=== PATIENT | male | born 1940 | race Caucasian/White ===

== ENCOUNTER 2023-01-24 18:39 | Inpatient (IN) ==
[2023-01-24] MEDS ORDERED: ONDANSETRON 4 MG/2 ML VIAL IV ONE (19:06)
[2023-01-24 19:14] LABS: POC Calcium, Ionized 1.22 (1.16-1.32); POC Creatinine 2.7 (0.6-1.2); POC Potassium 5.4 (3.3-5.1)
[2023-01-24 20:08] LABS: Basophils # (Auto) 0.03 K/mcL (0.00-0.30); Basophils % (Auto) 0.4 % (0.0-2.0); Eosinophils # (Auto) 0.02 K/mcL (0.00-0.70); Eosinophils % (Auto) 0.2 % (0.0-7.0); Hematocrit 50.1 % (40.1-51.0); Hemoglobin 15.8 g/dL (13.7-17.5); Lymphocytes # (Auto) 1.07 K/mcL (1.50-4.80); Lymphocytes % (Auto) 12.7 % (15.5-49.0); Mean Cell Volume 93.5 fL (80.0-100.0); Mean Corpuscular HGB Conc 31.5 g/dL (31.0-36.0); Mean Platelet Volume 10.4 fL (8.8-12.5); Monocytes # (Auto) 0.91 K/mcL (0.10-0.90); Monocytes % (Auto) 10.8 % (1.0-12.0); Neutrophils % (Auto) 75.5 % (38.0-78.0); Platelet Count 220 K/mcL (140-440); RBC 5.36 M/mcL (4.63-6.08); Red Cell Distribution Width 15.4 % (11.5-14.5); WBC 8.4 K/mcL (4.5-11.0)
[2023-01-24 20:29] LABS: ALT/SGPT 46 U/L (<40); AST/SGOT 45 U/L (<40); Albumin 4.2 gm/dL (3.2-5.2); Alkaline Phosphatase 112 U/L (39-117); Bilirubin,Direct 0.2 mg/dL (<0.3); Bilirubin,Total 0.8 mg/dL (0.1-1.0); Globulin 3.8 gm/dL (2.2-3.7)
[2023-01-24] MEDS ORDERED: LACTATED RINGERS 1,000 ML IV ONE (20:40)
[2023-01-24] MEDS ORDERED: PIPERACILLIN SODIUM/TAZOBACTAM 3.375 GM in DEXTROSE 5% IN WATER 50 ML IV ONE (22:07)
[2023-01-24] MEDS ORDERED: METOPROLOL TARTRATE 5 MG/5 ML VIAL IV PRN (23:00)
[2023-01-24] MEDS ORDERED: METOCLOPRAMIDE 10 MG/2 ML VIAL IV PRN (23:00)
[2023-01-24] MEDS ORDERED: KETOROLAC 30 MG/ML VIAL IV PRN (23:00)
[2023-01-24] MEDS ORDERED: ONDANSETRON 4 MG/2 ML VIAL IV PRN (23:00)
[2023-01-24] MEDS ORDERED: DEXTROSE 50% 50 ML VIAL IV PRN (23:00)
[2023-01-24] MEDS ORDERED: hydrALAZINE 20 MG/ML VIAL IV PRN (23:00)
[2023-01-24] MEDS ORDERED: IPRATROPIUM/ALBUTEROL 3 ML AMPUL.NEB NEB PRN (23:00)
[2023-01-24] MEDS ORDERED: morphine 4 MG/ML VIAL IV PRN (23:00)
[2023-01-24] MEDS ORDERED: traZODone HCL 50 MG TABLET PO PRN (23:00)
[2023-01-24] MEDS ORDERED: DEXTROSE 31 GM ORAL.SUSP PO PRN (23:00)
[2023-01-24] MEDS: DEXTROSE 5%-1/2NS 1,000 ML IV SCH (23:16)
[2023-01-25] MEDS: INSULIN LISPRO 1 UNIT/0.01 ML UNIT SQ SCH ×4 (00:46→17:18)
[2023-01-25] MEDS ORDERED: PIPERACILLIN SODIUM/TAZOBACTAM 3.375 GM VIAL IV ONE (01:50)
[2023-01-25] MEDS: PIPERACILLIN SODIUM/TAZOBACTAM 3.375 GM in DEXTROSE 5% IN WATER 100 ML IV SCH ×4 (02:18→22:10)
[2023-01-25] MEDS: 0.9 % SODIUM CHLORIDE 10 ML SYRINGE IV SCH ×3 (04:08→20:07)
[2023-01-25] MEDS: ACETAMINOPHEN 650 MG/65 ML BAG IV PRN (05:54)
[2023-01-25] MEDS ORDERED: ACETAMINOPHEN 1,000 MG/100 ML BAG IV ONE (05:54)
[2023-01-25 06:20] LABS: Basophils # (Auto) 0.02 K/mcL (0.00-0.30); Basophils % (Auto) 0.3 % (0.0-2.0); Eosinophils % (Auto) 1.7 % (0.0-7.0); Hematocrit 43.6 % (40.1-51.0); Hemoglobin 13.4 g/dL (13.7-17.5); Lymphocytes # (Auto) 1.15 K/mcL (1.50-4.80); Lymphocytes % (Auto) 19.2 % (15.5-49.0); Mean Cell Volume 96.2 fL (80.0-100.0); Mean Corpuscular HGB Conc 30.7 g/dL (31.0-36.0); Mean Platelet Volume 10.6 fL (8.8-12.5); Monocytes # (Auto) 0.75 K/mcL (0.10-0.90); Monocytes % (Auto) 12.5 % (1.0-12.0); Neutrophils % (Auto) 66.1 % (38.0-78.0); Platelet Count 180 K/mcL (140-440); RBC 4.53 M/mcL (4.63-6.08); Red Cell Distribution Width 15.5 % (11.5-14.5)
[2023-01-25 06:50] LABS: ALT/SGPT 31 U/L (<40); AST/SGOT 27 U/L (<40); Albumin 3.4 gm/dL (3.2-5.2); Albumin/Globulin Ratio 1.1 (1.0-2.3); Alkaline Phosphatase 85 U/L (39-117); Bilirubin,Total 0.7 mg/dL (0.1-1.0); Blood Urea Nitrogen 40 mg/dL (8-23); Calcium 9.3 mg/dL (8.6-10.4); Carbon Dioxide 25 mmol/L (22-30); Chloride 103 mmol/L (96-108); Globulin 3.1 gm/dL (2.2-3.7); Glomerular Filtration Rate 27; Glucose 147 mg/dL (70-105)
[2023-01-25] MEDS: DOCUSATE SODIUM 100 MG CAPSULE PO SCH ×2 (08:31→20:07)
[2023-01-25] MEDS: DEXTROSE 5%-1/2NS 1,000 ML IV SCH (13:48)
[2023-01-25] MEDS: SENNOSIDES 1 TABLET PO SCH (20:07)
[2023-01-26] MEDS: INSULIN LISPRO 1 UNIT/0.01 ML UNIT SQ SCH ×4 (00:04→17:34)
[2023-01-26] MEDS: DEXTROSE 5%-1/2NS 1,000 ML IV SCH ×2 (04:41→14:32)
[2023-01-26] MEDS: 0.9 % SODIUM CHLORIDE 10 ML SYRINGE IV SCH ×3 (04:41→21:16)
[2023-01-26 06:23] LABS: Basophils # (Auto) 0.02 K/mcL (0.00-0.30); Basophils % (Auto) 0.3 % (0.0-2.0); Eosinophils # (Auto) 0.29 K/mcL (0.00-0.70); Eosinophils % (Auto) 4.4 % (0.0-7.0); Hematocrit 42.7 % (40.1-51.0); Hemoglobin 13.4 g/dL (13.7-17.5); Lymphocytes # (Auto) 1.03 K/mcL (1.50-4.80); Lymphocytes % (Auto) 15.5 % (15.5-49.0); Mean Cell Volume 95.5 fL (80.0-100.0); Mean Corpuscular HGB Conc 31.4 g/dL (31.0-36.0); Mean Platelet Volume 10.3 fL (8.8-12.5); Monocytes # (Auto) 0.66 K/mcL (0.10-0.90); Neutrophils % (Auto) 69.5 % (38.0-78.0); Platelet Count 150 K/mcL (140-440); RBC 4.47 M/mcL (4.63-6.08); Red Cell Distribution Width 14.9 % (11.5-14.5); WBC 6.6 K/mcL (4.5-11.0)
[2023-01-26] MEDS: PIPERACILLIN SODIUM/TAZOBACTAM 3.375 GM in DEXTROSE 5% IN WATER 100 ML IV SCH ×3 (06:28→23:53)
[2023-01-26 06:46] LABS: ALT/SGPT 25 U/L (<40); AST/SGOT 21 U/L (<40); Albumin 2.9 gm/dL (3.2-5.2); Albumin/Globulin Ratio 0.9 (1.0-2.3); Alkaline Phosphatase 70 U/L (39-117); Bilirubin,Total 0.5 mg/dL (0.1-1.0); Blood Urea Nitrogen 37 mg/dL (8-23); Carbon Dioxide 26 mmol/L (22-30); Chloride 101 mmol/L (96-108); Globulin 3.3 gm/dL (2.2-3.7); Glomerular Filtration Rate 28; Glucose 136 mg/dL (70-105)
[2023-01-26] MEDS: PANTOPRAZOLE 40 MG VIAL IV SCH ×2 (08:25→16:56)
[2023-01-26] MEDS: DOCUSATE SODIUM 100 MG CAPSULE PO SCH ×2 (08:26→21:13)
[2023-01-26] MEDS: ACETAMINOPHEN 650 MG/65 ML BAG IV PRN ×2 (08:39→23:54)
[2023-01-26] MEDS ORDERED: ALBUTEROL SULFATE 90 MCG IH PRN (09:44)
[2023-01-26] MEDS ORDERED: ALBUTEROL SULFATE 60 PUFF INHALER INH PRN (09:44)
[2023-01-26] MEDS ORDERED: ALBUTEROL SULFATE 2.5 MG/3 ML NEBULIZER INH PRN (09:44)
[2023-01-26] MEDS: FLUTICASONE/SALMETEROL 250/50 INHALER #14 INH SCH ×2 (10:33→23:34)
[2023-01-26] MEDS ORDERED: METOPROLOL TARTRATE 5 MG/5 ML VIAL IV PRN (13:54)
[2023-01-26] MEDS ORDERED: LABETALOL HCL 20 MG/4 ML VIAL IV PRN (13:54)
[2023-01-26] MEDS ORDERED: hydrALAZINE 20 MG/ML VIAL IV PRN (13:54)
[2023-01-26] MEDS ORDERED: GABAPENTIN 300 MG CAPSULE PO ONE (20:42)
[2023-01-26] MEDS ORDERED: GABAPENTIN 300 MG CAPSULE ONE (21:02)
[2023-01-26] MEDS: SENNOSIDES 1 TABLET PO SCH (21:12)
[2023-01-26] MEDS: TAMSULOSIN 0.4 MG CAPSULE PO SCH (21:13)
[2023-01-26] MEDS: METOPROLOL TARTRATE 50 MG TABLET PO SCH (21:13)
[2023-01-26] MEDS: FAMOTIDINE/PF 20 MG/2 ML VIAL IV SCH (21:14)
[2023-01-26] MEDS: FINASTERIDE 5 MG TABLET PO SCH (21:14)
[2023-01-27] MEDS: INSULIN LISPRO 1 UNIT/0.01 ML UNIT SQ SCH ×4 (00:32→16:58)
[2023-01-27] MEDS: DEXTROSE 5%-1/2NS 1,000 ML IV SCH ×2 (06:08→18:10)
[2023-01-27] MEDS: 0.9 % SODIUM CHLORIDE 10 ML SYRINGE IV SCH ×2 (06:22→13:17)
[2023-01-27] MEDS: PIPERACILLIN SODIUM/TAZOBACTAM 3.375 GM in DEXTROSE 5% IN WATER 100 ML IV SCH ×3 (06:22→21:33)
[2023-01-27 06:56] LABS: ALT/SGPT 22 U/L (<40); AST/SGOT 22 U/L (<40); Albumin 3.3 gm/dL (3.2-5.2); Alkaline Phosphatase 74 U/L (39-117); Bilirubin,Direct 0.2 mg/dL (<0.3); Bilirubin,Total 0.6 mg/dL (0.1-1.0); Blood Urea Nitrogen 32 mg/dL (8-23); Calcium 9.6 mg/dL (8.6-10.4); Carbon Dioxide 26 mmol/L (22-30); Chloride 103 mmol/L (96-108); Globulin 3.4 gm/dL (2.2-3.7); Glomerular Filtration Rate 36; Glucose 114 mg/dL (70-105); Lactate Dehydrogenase 178 U/L (135-225); Phosphorous 3.6 mg/dL (2.5-4.5); Triglycerides 110 mg/dL (<150); Uric Acid 8.3 mg/dL (2.5-8.0)
[2023-01-27] MEDS: PANTOPRAZOLE 40 MG VIAL IV SCH ×2 (09:05→17:26)
[2023-01-27] MEDS: GABAPENTIN 300 MG CAPSULE PO SCH (09:06)
[2023-01-27] MEDS: ATORVASTATIN 40 MG TABLET PO SCH (09:06)
[2023-01-27] MEDS: METOPROLOL TARTRATE 50 MG TABLET PO SCH ×2 (09:06→23:04)
[2023-01-27] MEDS: LEVOTHYROXINE 100 MCG TABLET PO SCH (09:06)
[2023-01-27] MEDS: DOCUSATE SODIUM 100 MG CAPSULE PO SCH ×2 (09:06→20:43)
[2023-01-27] MEDS: FLUTICASONE/SALMETEROL 250/50 INHALER #14 INH SCH ×2 (09:10→23:03)
[2023-01-27] MEDS: TIOTROPIUM BROMIDE 18 MCG INHALANT INH SCH (09:11)
[2023-01-27] MEDS: SENNOSIDES 1 TABLET PO SCH (20:43)
[2023-01-27] MEDS: TAMSULOSIN 0.4 MG CAPSULE PO SCH (20:44)
[2023-01-27] MEDS: FINASTERIDE 5 MG TABLET PO SCH (20:44)
[2023-01-27] MEDS: FAMOTIDINE/PF 20 MG/2 ML VIAL IV SCH (20:45)
[2023-01-28] MEDS: 0.9 % SODIUM CHLORIDE 10 ML SYRINGE IV SCH ×3 (00:51→13:45)
[2023-01-28] MEDS: INSULIN LISPRO 1 UNIT/0.01 ML UNIT SQ SCH ×3 (00:51→11:49)
[2023-01-28] MEDS: PIPERACILLIN SODIUM/TAZOBACTAM 3.375 GM in DEXTROSE 5% IN WATER 100 ML IV SCH ×2 (05:13→13:44)
[2023-01-28] MEDS: PANTOPRAZOLE 40 MG VIAL IV SCH (06:57)
[2023-01-28] MEDS: LEVOTHYROXINE 100 MCG TABLET PO SCH (06:58)
[2023-01-28] MEDS: DEXTROSE 5%-1/2NS 1,000 ML IV SCH (07:00)
[2023-01-28] MEDS: FLUTICASONE/SALMETEROL 250/50 INHALER #14 INH SCH (08:04)
[2023-01-28] MEDS: DOCUSATE SODIUM 100 MG CAPSULE PO SCH (08:05)
[2023-01-28] MEDS: TIOTROPIUM BROMIDE 18 MCG INHALANT INH SCH (08:05)
[2023-01-28] MEDS: METOPROLOL TARTRATE 50 MG TABLET PO SCH (08:05)
[2023-01-28] MEDS: ATORVASTATIN 40 MG TABLET PO SCH (08:10)
[2023-01-28] MEDS: GABAPENTIN 300 MG CAPSULE PO SCH (08:10)
== END 2023-01-28 15:25 | disposition home or self-care (01) | DRG 389 ==
LOC: ED 18:39 → MEDSUR 22:56
PROVIDERS: ADMIT Internal Medicine; ATTEND Internal Medicine

== ENCOUNTER 2023-07-13 16:48 | Inpatient (IN) ==
[2023-07-13] MEDS: ACETAMINOPHEN 1,000 MG/100 ML BAG IV ONE (17:28)
[2023-07-13 17:47] LABS: Basophils # (Auto) 0.03 K/mcL (0.00-0.30); Basophils % (Auto) 0.2 % (0.0-2.0); Eosinophils # (Auto) 0.03 K/mcL (0.00-0.70); Eosinophils % (Auto) 0.2 % (0.0-7.0); Hematocrit 43.4 % (40.1-51.0); Hemoglobin 13.2 g/dL (13.7-17.5); Lymphocytes # (Auto) 0.64 K/mcL (1.50-4.80); Mean Cell Volume 99.8 fL (80.0-100.0); Mean Corpuscular HGB Conc 30.4 g/dL (31.0-36.0); Monocytes # (Auto) 0.94 K/mcL (0.10-0.90); Monocytes % (Auto) 7.3 % (1.0-12.0); Neutrophils % (Auto) 87.1 % (38.0-78.0); Platelet Count 172 K/mcL (140-440); RBC 4.35 M/mcL (4.63-6.08); Red Cell Distribution Width 14.8 % (11.5-14.5); WBC 12.8 K/mcL (4.5-11.0)
[2023-07-13 17:59] LABS: ABG Methemoglobin 0.1 % (0.4-1.5); Total Hemoglobin 14.1 gm/Dl (13.5-16.5); VBG Base Excess -2 (-2-3); VBG Oxygen Saturation 75.4 % (40.0-70.0); VBG PCO2 46.5 mmHg (41.0-51.0); VBG PH 7.33 U (7.32-7.42); VBG Total CO2 25.4 mmol/L (25.0-29.0)
[2023-07-13 18:06] LABS: ALT/SGPT 35 U/L (<40); AST/SGOT 32 U/L (<40); Albumin 3.8 gm/dL (3.2-5.2); Albumin/Globulin Ratio 1.3 (1.0-2.3); Alkaline Phosphatase 89 U/L (39-117); Bilirubin,Total 0.5 mg/dL (0.1-1.0); Blood Urea Nitrogen 36 mg/dL (8-23); Calcium 9.5 mg/dL (8.6-10.4); Carbon Dioxide 26 mmol/L (22-30); Chloride 101 mmol/L (96-108); Globulin 2.9 gm/dL (2.2-3.7); Glomerular Filtration Rate 34; Glucose 132 mg/dL (70-105)
[2023-07-13 18:08] LABS: Prothrombin Time 14.2 sec (11.9-14.5)
[2023-07-13] MEDS: cefTRIAXone 2 GM in DEXTROSE 5% IN WATER 50 ML IV ONE (18:18)
[2023-07-13] MEDS: AZITHROMYCIN 500 MG in DEXTROSE 5% IN WATER 250 ML IV ONE (18:42)
[2023-07-13] MEDS: FUROSEMIDE 20 MG/2 ML VIAL IV ONE (18:42)
[2023-07-13 19:37] LABS: Appearance,Urine Clear (Clear); Bilirubin,Urine Negative (Negative); Color,Urine Yellow; Culture Indicated,Urine No; Glucose,Urine (UA) Negative (Negative); Ketones,Urine Negative (Negative); Leukocyte Esterase,Urine Negative /uL (Negative); Nitrate,Urine Negative (Negative); Protein,Urine Trace mg/dL (Negative); Specific Gravity,Urine 1.015 (1.000-1.035); Urine Blood Trace-intact ery/mcL (Negative); Urine RBC 3 /hpf (0-3); Urine WBC 0 /hpf (0-4); Urobilinogen,Urine Normal
[2023-07-13] MEDS: DOCUSATE SODIUM 100 MG CAPSULE PO SCH (21:00)
[2023-07-13] MEDS ORDERED: ONDANSETRON 4 MG/2 ML VIAL IV PRN (21:02)
[2023-07-13] MEDS ORDERED: POTASSIUM CHLORIDE 20 MEQ TABLET PO PRN ×2 (21:02)
[2023-07-13] MEDS ORDERED: MAGNESIUM SULFATE 2 GM/50 ML BAG IV PRN (21:02)
[2023-07-13] MEDS ORDERED: METOPROLOL TARTRATE 5 MG/5 ML VIAL IV PRN (21:02)
[2023-07-13] MEDS ORDERED: POLYETHYLENE GLYCOL 3350 17 GM PACKET PO PRN (21:02)
[2023-07-13] MEDS ORDERED: POTASSIUM CHLORIDE 40 MEQ in DEXTROSE 5% IN WATER 500 ML IV PRN (21:02)
[2023-07-13] MEDS ORDERED: DEXTROSE 31 GM ORAL.SUSP PO PRN (21:02)
[2023-07-13] MEDS ORDERED: DEXTROSE 50% 50 ML VIAL IV PRN (21:02)
[2023-07-13] MEDS: BUDESONIDE 0.5 MG/2 ML AMPUL.NEB NEB SCH (21:55)
[2023-07-13] MEDS: IPRATROPIUM/ALBUTEROL 3 ML AMPUL.NEB NEB PRN (21:55)
[2023-07-13] MEDS: INSULIN LISPRO 1 UNIT/0.01 ML UNIT SQ SCH (22:00)
[2023-07-14] MEDS: ACETAMINOPHEN 325 MG TABLET PO PRN (00:50)
[2023-07-14] MEDS: SENNOSIDES 1 TABLET PO PRN (05:18)
[2023-07-14 06:51] LABS: Basophils # (Auto) 0.06 K/mcL (0.00-0.30); Basophils % (Auto) 0.4 % (0.0-2.0); Eosinophils # (Auto) 0.02 K/mcL (0.00-0.70); Eosinophils % (Auto) 0.1 % (0.0-7.0); Hematocrit 39.2 % (40.1-51.0); Hemoglobin 11.8 g/dL (13.7-17.5); Lymphocytes % (Auto) 5.7 % (15.5-49.0); Mean Cell Volume 98.2 fL (80.0-100.0); Mean Corpuscular HGB Conc 30.1 g/dL (31.0-36.0); Mean Platelet Volume 10.1 fL (8.8-12.5); Monocytes # (Auto) 1.03 K/mcL (0.10-0.90); Monocytes % (Auto) 6.6 % (1.0-12.0); Neutrophils % (Auto) 86.7 % (38.0-78.0); Platelet Count 151 K/mcL (140-440); RBC 3.99 M/mcL (4.63-6.08); WBC 15.7 K/mcL (4.5-11.0)
[2023-07-14 07:08] LABS: ALT/SGPT 23 U/L (<40); AST/SGOT 29 U/L (<40); Albumin 3.4 gm/dL (3.2-5.2); Albumin/Globulin Ratio 1.1 (1.0-2.3); Alkaline Phosphatase 80 U/L (39-117); Bilirubin,Direct 0.3 mg/dL (<0.3); Bilirubin,Total 0.6 mg/dL (0.1-1.0); Blood Urea Nitrogen 39 mg/dL (8-23); Calcium 9.1 mg/dL (8.6-10.4); Carbon Dioxide 23 mmol/L (22-30); Chloride 103 mmol/L (96-108); Globulin 3.2 gm/dL (2.2-3.7); Glomerular Filtration Rate 36; Glucose 121 mg/dL (70-105); Lactate Dehydrogenase 171 U/L (135-225); Phosphorous 3.3 mg/dL (2.5-4.5); Triglycerides 92 mg/dL (<150); Uric Acid 7.8 mg/dL (2.5-8.0)
[2023-07-14] MEDS: AZITHROMYCIN 500 MG in DEXTROSE 5% IN WATER 250 ML IV SCH (10:15)
[2023-07-14] MEDS: cefTRIAXone 2 GM in DEXTROSE 5% IN WATER 50 ML IV SCH (10:16)
[2023-07-14] MEDS: ALLOPURINOL 100 MG TABLET PO SCH (10:20)
[2023-07-14] MEDS: GABAPENTIN 300 MG CAPSULE PO SCH ×2 (10:20→20:59)
[2023-07-14 10:22] LABS: Anisocytosis 1+ (None Seen); Lymphocytes % 7 % (15-49); Monocytes % (Manual) 6 % (1-12); Platelet Estimate NORMAL (Normal); RBC Morphology ABNORMAL (Normal); Reactive Lymphocytes 1 % (0-2); Segmented Neutrophils % 86 % (38-78)
[2023-07-14] MEDS: LEVOTHYROXINE 125 MCG TABLET PO SCH (10:22)
[2023-07-14] MEDS: ATORVASTATIN 40 MG TABLET PO SCH (10:22)
[2023-07-14] MEDS: METOPROLOL TARTRATE 25 MG TABLET PO SCH (10:23)
[2023-07-14] MEDS: ENOXAPARIN 40 MG/0.4 ML SYRINGE SQ SCH (10:25)
[2023-07-14] MEDS: FUROSEMIDE 40 MG TABLET PO SCH (11:10)
[2023-07-14] MEDS: ASPIRIN 81 MG TAB.CHEW CHEWED SCH (11:11)
[2023-07-14] MEDS: HYDROCODONE/APAP 7.5/325MG TABLET PO PRN (11:55)
[2023-07-14] MEDS: TAMSULOSIN 0.4 MG CAPSULE PO SCH (20:57)
[2023-07-14] MEDS: FAMOTIDINE 20 MG TABLET PO SCH (20:57)
[2023-07-14] MEDS: FINASTERIDE 5 MG TABLET PO SCH (20:58)
[2023-07-15 05:46] LABS: Basophils # (Auto) 0.02 K/mcL (0.00-0.30); Basophils % (Auto) 0.1 % (0.0-2.0); Eosinophils # (Auto) 0.03 K/mcL (0.00-0.70); Eosinophils % (Auto) 0.2 % (0.0-7.0); Hematocrit 36.7 % (40.1-51.0); Hemoglobin 11.4 g/dL (13.7-17.5); Lymphocytes # (Auto) 0.65 K/mcL (1.50-4.80); Lymphocytes % (Auto) 4.6 % (15.5-49.0); Mean Cell Volume 98.9 fL (80.0-100.0); Mean Corpuscular HGB Conc 31.1 g/dL (31.0-36.0); Mean Platelet Volume 10.3 fL (8.8-12.5); Monocytes # (Auto) 1.03 K/mcL (0.10-0.90); Monocytes % (Auto) 7.3 % (1.0-12.0); Neutrophils % (Auto) 87.5 % (38.0-78.0); Platelet Count 145 K/mcL (140-440); RBC 3.71 M/mcL (4.63-6.08); Red Cell Distribution Width 14.5 % (11.5-14.5); WBC 14.1 K/mcL (4.5-11.0)
[2023-07-15] MEDS: FUROSEMIDE 40 MG TABLET PO SCH (09:12)
[2023-07-15] MEDS: ASPIRIN 81 MG TAB.CHEW PO SCH (09:13)
[2023-07-16 06:16] LABS: Basophils # (Auto) 0.02 K/mcL (0.00-0.30); Basophils % (Auto) 0.2 % (0.0-2.0); Eosinophils # (Auto) 0.13 K/mcL (0.00-0.70); Eosinophils % (Auto) 1.3 % (0.0-7.0); Hematocrit 36.1 % (40.1-51.0); Hemoglobin 11.5 g/dL (13.7-17.5); Lymphocytes % (Auto) 6.7 % (15.5-49.0); Mean Cell Volume 96.3 fL (80.0-100.0); Mean Corpuscular HGB Conc 31.9 g/dL (31.0-36.0); Mean Platelet Volume 10.4 fL (8.8-12.5); Monocytes # (Auto) 0.82 K/mcL (0.10-0.90); Monocytes % (Auto) 7.9 % (1.0-12.0); Neutrophils % (Auto) 83.8 % (38.0-78.0); Platelet Count 159 K/mcL (140-440); RBC 3.75 M/mcL (4.63-6.08); Red Cell Distribution Width 14.4 % (11.5-14.5); WBC 10.4 K/mcL (4.5-11.0)
[2023-07-16] MEDS: METHOCARBAMOL 750 MG TABLET PO PRN (08:58)
[2023-07-16] MEDS: cefTRIAXone 2 GM VIAL ONE (10:04)
== END 2023-07-16 12:05 | disposition home or self-care (01) | DRG 871 ==
LOC: EDACCT# → ED 16:48 → ICU 20:58 → MEDSUR 07-14 09:26
PROVIDERS: ADMIT Internal Medicine; ATTEND Internal Medicine

== ENCOUNTER 2023-07-17 00:57 | Inpatient (IN) ==
[2023-07-17] MEDS: ACETAMINOPHEN 650 MG/65 ML BAG IV ONE (01:26)
[2023-07-17] MEDS: ACETAMINOPHEN 1,000 MG/100 ML BAG IV ONE ×2 (01:32→02:06)
[2023-07-17 01:52] LABS: Basophils # (Auto) 0.02 K/mcL (0.00-0.30); Basophils % (Auto) 0.2 % (0.0-2.0); Eosinophils # (Auto) 0.06 K/mcL (0.00-0.70); Eosinophils % (Auto) 0.6 % (0.0-7.0); Hematocrit 38.3 % (40.1-51.0); Hemoglobin 12.3 g/dL (13.7-17.5); Lymphocytes # (Auto) 0.45 K/mcL (1.50-4.80); Lymphocytes % (Auto) 4.4 % (15.5-49.0); Mean Cell Volume 94.3 fL (80.0-100.0); Mean Corpuscular HGB Conc 32.1 g/dL (31.0-36.0); Mean Platelet Volume 10.3 fL (8.8-12.5); Monocytes # (Auto) 0.74 K/mcL (0.10-0.90); Monocytes % (Auto) 7.2 % (1.0-12.0); Neutrophils % (Auto) 87.3 % (38.0-78.0); Platelet Count 186 K/mcL (140-440); RBC 4.06 M/mcL (4.63-6.08); Red Cell Distribution Width 14.4 % (11.5-14.5); WBC 10.3 K/mcL (4.5-11.0)
[2023-07-17 02:09] LABS: ALT/SGPT 46 U/L (<40); AST/SGOT 63 U/L (<40); Albumin 3.5 gm/dL (3.2-5.2); Albumin/Globulin Ratio 0.9 (1.0-2.3); Alkaline Phosphatase 122 U/L (39-117); Bilirubin,Total 0.5 mg/dL (0.1-1.0); Blood Urea Nitrogen 43 mg/dL (8-23); Calcium 9.8 mg/dL (8.6-10.4); Carbon Dioxide 24 mmol/L (22-30); Chloride 100 mmol/L (96-108); Globulin 3.8 gm/dL (2.2-3.7); Glomerular Filtration Rate 30; Glucose 137 mg/dL (70-105)
[2023-07-17] MEDS: FUROSEMIDE 100 MG/10 ML VIAL IV ONE (02:56)
[2023-07-17 04:22] LABS: Appearance,Urine HAZY (Clear); Bilirubin,Urine Negative (Negative); Color,Urine AMBER; Culture Indicated,Urine Yes; Glucose,Urine (UA) Negative (Negative); Ketones,Urine Negative (Negative); Leukocyte Esterase,Urine 25 /uL (Negative); Mucus,Urine FEW /hpf; Nitrate,Urine Negative (Negative); Protein,Urine 30 mg/dL (Negative); Specific Gravity,Urine 1.017 (1.000-1.035); Urine Blood Moderate ery/mcL (Negative); Urine Hyaline Cast 6 /lph (0-2); Urine RBC 35 /hpf (0-3); Urine Squamous Epithelial Cell 2 /hpf (0-4); Urine WBC 17 /hpf (0-4); Urobilinogen,Urine Negative
[2023-07-17] MEDS: cefTRIAXone 2 GM in DEXTROSE 5% IN WATER 50 ML IV ONE (05:37)
[2023-07-17] MEDS: AZITHROMYCIN 500 MG in DEXTROSE 5% IN WATER 250 ML IV ONE (06:12)
[2023-07-17] MEDS ORDERED: POTASSIUM CHLORIDE 20 MEQ TABLET PO PRN ×2 (10:46)
[2023-07-17] MEDS ORDERED: DEXTROSE 31 GM ORAL.SUSP PO PRN (10:46)
[2023-07-17] MEDS ORDERED: POLYETHYLENE GLYCOL 3350 17 GM PACKET PO PRN (10:46)
[2023-07-17] MEDS ORDERED: POTASSIUM CHLORIDE 40 MEQ in DEXTROSE 5% IN WATER 500 ML IV PRN (10:46)
[2023-07-17] MEDS ORDERED: DEXTROSE 50% 50 ML VIAL IV PRN (10:46)
[2023-07-17] MEDS ORDERED: SENNOSIDES 1 TABLET PO PRN (10:46)
[2023-07-17] MEDS ORDERED: METOPROLOL TARTRATE 5 MG/5 ML VIAL IV PRN (10:46)
[2023-07-17] MEDS ORDERED: MAGNESIUM SULFATE 2 GM/50 ML BAG IV PRN (10:46)
[2023-07-17] MEDS ORDERED: ONDANSETRON 4 MG/2 ML VIAL IV PRN (10:46)
[2023-07-17] MEDS: INSULIN LISPRO 1 UNIT/0.01 ML UNIT SQ SCH (12:12)
[2023-07-17] MEDS: ACETAMINOPHEN 325 MG TABLET PO PRN (14:49)
[2023-07-17] MEDS: FUROSEMIDE 40 MG/4 ML VIAL IV SCH (16:36)
[2023-07-17] MEDS ORDERED: ALBUTEROL SULFATE 2.5 MG/3 ML NEBULIZER INH PRN (17:48)
[2023-07-17] MEDS ORDERED: METHOCARBAMOL 750 MG TABLET PO PRN (17:48)
[2023-07-17] MEDS ORDERED: ALBUTEROL SULFATE 60 PUFF INHALER INH PRN (17:58)
[2023-07-17] MEDS: FLUTICASONE/SALMETEROL 250/50 INHALER INH SCH (18:24)
[2023-07-17] MEDS: IPRATROPIUM/ALBUTEROL 3 ML AMPUL.NEB NEB PRN (20:00)
[2023-07-17] MEDS: GLUCOSAMINE/CHONDROITIN SULF A 1 CAP CAPSULE PO SCH (20:34)
[2023-07-17] MEDS: VITAMIN B COMPLEX 1 CAPSULE PO SCH (20:35)
[2023-07-17] MEDS: CEFDINIR 300 MG CAPSULE PO SCH (20:36)
[2023-07-17] MEDS: FAMOTIDINE 20 MG TABLET PO SCH (20:36)
[2023-07-17] MEDS: TAMSULOSIN 0.4 MG CAPSULE PO SCH (20:37)
[2023-07-17] MEDS: HEPARIN 5,000 UNIT/ML VIAL SQ SCH (20:37)
[2023-07-17] MEDS: GABAPENTIN 300 MG CAPSULE PO SCH (20:38)
[2023-07-17] MEDS: HYDROCODONE/APAP 7.5/325MG TABLET PO PRN (20:38)
[2023-07-17] MEDS: MAGNESIUM OXIDE 400 MG TABLET PO SCH (20:39)
[2023-07-17] MEDS: guaiFENesin 600 MG TAB.SR.12H PO SCH (20:39)
[2023-07-17] MEDS: METOPROLOL TARTRATE 50 MG TABLET PO SCH (20:39)
[2023-07-17] MEDS: FINASTERIDE 5 MG TABLET PO SCH (20:39)
[2023-07-17] MEDS: DOCUSATE SODIUM 100 MG CAPSULE PO SCH (20:40)
[2023-07-17] MEDS: INSULIN GLARGINE, HUMAN 1 UNIT/0.01 ML SQ SCH (20:46)
[2023-07-17] MEDS ORDERED: DOCUSATE SODIUM 100 MG CAPSULE PO SCH (21:00)
[2023-07-17] MEDS ORDERED: CEFDINIR 300 MG CAPSULE PO SCH (21:00)
[2023-07-18] MEDS: 0.9 % SODIUM CHLORIDE 10 ML SYRINGE IV SCH (05:32)
[2023-07-18 06:16] LABS: Basophils # (Auto) 0.03 K/mcL (0.00-0.30); Basophils % (Auto) 0.4 % (0.0-2.0); Eosinophils # (Auto) 0.21 K/mcL (0.00-0.70); Eosinophils % (Auto) 2.8 % (0.0-7.0); Hematocrit 34.6 % (40.1-51.0); Lymphocytes # (Auto) 0.67 K/mcL (1.50-4.80); Lymphocytes % (Auto) 8.8 % (15.5-49.0); Mean Cell Volume 94.3 fL (80.0-100.0); Mean Corpuscular HGB Conc 31.8 g/dL (31.0-36.0); Mean Platelet Volume 10.1 fL (8.8-12.5); Monocytes # (Auto) 0.62 K/mcL (0.10-0.90); Monocytes % (Auto) 8.2 % (1.0-12.0); Neutrophils % (Auto) 79.3 % (38.0-78.0); Platelet Count 190 K/mcL (140-440); RBC 3.67 M/mcL (4.63-6.08); Red Cell Distribution Width 14.2 % (11.5-14.5); WBC 7.6 K/mcL (4.5-11.0)
[2023-07-18 07:00] LABS: ALT/SGPT 35 U/L (<40); AST/SGOT 44 U/L (<40); Albumin 2.9 gm/dL (3.2-5.2); Albumin/Globulin Ratio 0.9 (1.0-2.3); Alkaline Phosphatase 96 U/L (39-117); Bilirubin,Total 0.5 mg/dL (0.1-1.0); Blood Urea Nitrogen 39 mg/dL (8-23); Calcium 9.2 mg/dL (8.6-10.4); Carbon Dioxide 25 mmol/L (22-30); Chloride 100 mmol/L (96-108); Globulin 3.2 gm/dL (2.2-3.7); Glomerular Filtration Rate 39; Glucose 103 mg/dL (70-105)
[2023-07-18] MEDS ORDERED: ENOXAPARIN 40 MG/0.4 ML SYRINGE SQ SCH (09:00)
[2023-07-18] MEDS: FUROSEMIDE 40 MG TABLET PO SCH (09:34)
[2023-07-18] MEDS: LEVOTHYROXINE 125 MCG TABLET PO SCH (09:34)
[2023-07-18] MEDS: FERROUS SULFATE 325 MG TABLET PO SCH (09:34)
[2023-07-18] MEDS: ASCORBIC ACID 500 MG TABLET PO SCH (09:34)
[2023-07-18] MEDS: GABAPENTIN 300 MG CAPSULE PO SCH (09:35)
[2023-07-18] MEDS: ALLOPURINOL 100 MG TABLET PO SCH (09:35)
[2023-07-18] MEDS: LISINOPRIL 5 MG TABLET PO SCH (09:35)
[2023-07-18] MEDS: ASPIRIN 81 MG TAB.CHEW PO SCH (09:36)
[2023-07-18] MEDS: TIOTROPIUM BROMIDE 18 MCG INHALANT INH SCH (09:36)
[2023-07-18] MEDS: ATORVASTATIN 40 MG TABLET PO SCH (09:36)
[2023-07-19] MEDS ORDERED: ERGOCALCIFEROL (VITAMIN D2) 50,000 UNIT CAPSULE PO SCH (09:00)
== END 2023-07-18 14:55 | DRG 291 ==
LOC: ED 00:57 → ICU 10:28
PROVIDERS: ADMIT Internal Medicine; ATTEND Internal Medicine